=== PATIENT | male | born 1995 | race American Indian/Alaskan Native ===

== ENCOUNTER 2017-05-02 11:50 | Emergency (ER) | payer SELFPAY ==
[2017-05-02] MEDS ORDERED: NACL 0.9% 1000 ML 1,000 ML IV ONE (13:08)
--- NOTE | 2017-05-02 13:16 | Emergency Department Report ---
HPI - General Chief Complaint: Arrhythmia/Palpitations Time Seen by Provider: 05/02/17 12:28 - HPI HPI: This is a 21-year-old male presents to the emergency department with a 2 day history of some tachycardia/palpitations, some tingling around his face and mouth as well as in the hands, and now he has started to develop some abdominal cramping and diarrhea. The patient thought that he was doing mildly but later found out that he was taking crystal meth. He denies any significant history of chronic drug use. He has not taken anything for his symptoms prior to presentation. 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 No recent travel or sick contacts at home. ED Past Medical Hx - Past Medical History Hx Psychiatric Treatment: Yes (bipolar / chronic depression) Additional medical history: heart murmur - Surgical History Past Surgical History?: No - Social History Smoking Status: Current Every Day Smoker Substance Use Type: Alcohol, Marijuana, Methamphetamines - Medications Home Medications: Home Medications Medication Instructions Recorded Confirmed Last Taken Type No Known Home Medications [No 05/02/17 05/02/17 Unknown History Reported Home Medications] ED Review of Systems ROS: Stated complaint: FAST PULSE/TINGLING FACE/FINGERTIPS Other details as noted in HPI Comment: All other systems reviewed and negative Constitutional: denies: chills, fever Eyes: denies: eye pain, eye discharge, vision change ENT: denies: ear pain, throat pain Respiratory: denies: cough, shortness of breath, wheezing Cardiovascular: palpitations (with tachycardia). denies: chest pain Gastrointestinal: abdominal pain, diarrhea Genitourinary: denies: urgency, dysuria Musculoskeletal: denies: back pain, joint swelling, arthralgia Skin: denies: rash, lesions Neurological: denies: headache, weakness, paresthesias Physical Exam - Physical Exam Vital Signs: Vital Signs 05/02/17 05/02/17 12:07 12:55 Temperature 97.4 F L Pulse Rate 97 H Respiratory 24 18 Rate Blood Pressure 147/103 O2 Sat by Pulse 100 100 Oximetry Physical Exam: GENERAL: The patient is well-developed well-nourished. HENT: Normocephalic. Atraumatic. Patient has moist mucous membranes. EYES: Extraocular motions are intact. Pupils equal, round and reactive to light. NECK: Supple. Trachea is midline. CHEST/LUNGS: Clear to auscultation. There is no respiratory distress noted. HEART/CARDIOVASCULAR: Regular. There is no tachycardia. There is no gallop rub or murmur. ABDOMEN: Abdomen is soft, nontender. No guarding or rebound tenderness. Patient has normal bowel sounds. There is no abdominal distention. SKIN: There is no rash. There is no edema. There is no diaphoresis. NEURO: The patient is awake, alert, and oriented. The patient is cooperative. The patient has no focal neurologic deficits. The patient has normal speech. Cranial nerves II through XII grossly intact. MUSCULOSKELETAL: There is no tenderness or deformity. There is no limitation range of motion. There is no evidence of acute injury. ED Course Vital Signs 05/02/17 05/02/17 12:07 12:55 Temperature 97.4 F L Pulse Rate 97 H Respiratory 24 18 Rate Blood Pressure 147/103 O2 Sat by Pulse 100 100 Oximetry ED Medical Decision Making - Lab Data Result diagrams: 05/02/17 13:42 05/02/17 13:42 - EKG Data -: EKG Interpreted by Tx EKG shows normal: sinus rhythm, axis (right axis deviation), intervals, QRS complexes, ST-T waves Rate: normal - EKG Data When compared to previous EKG there are: previous EKG unavailable Interpretation: normal EKG (with right axis deviation) - Radiology Data Radiology results: report reviewed Right upper quadrant abdominal ultrasound shows some possible debris within the gallbladder but otherwise there is no cholecystitis or any other acute process seen. - Medical Decision Making 21-year-old male presents one to 2 days after taking either methamphetamines or hafsa with complaints of some dizziness, nausea and vomiting, and lower abdominal cramping. Vital signs stable. His ED course. EKG is normal without ST elevation WI, arrhythmia or ischemia. Labs are mostly unremarkable except for elevated bilirubin at 2.2. Ultrasound was done that shows some gallbladder debris but no cholelithiasis or cholecystitis or any other acute process. It may be elevated secondary to recent vomiting episodes. He was given IV fluid resuscitation and reevaluated multiple times for multiple hours and says he is feeling greatly improved and currently asymptomatic. Vital signs stable. His ED course. He will avoid any further illicit drug use and follow-up with his primary care physician. Return to the ER with any worsening of symptoms or any acute distress. Critical Care Time: No Critical care attestation.: If time is entered above; I have spent that time in minutes in the direct care of this critically ill patient, excluding procedure time. ED Disposition Clinical Impression: Substance abuse, Dizziness Abdominal pain Qualifiers: Abdominal location: lower abdomen, unspecified Qualified Code(s): R10.30 - Lower abdominal pain, unspecified Disposition: DC- TO HOME OR SELFCARE Is pt being admited?: No Condition: Good Instructions: Abdominal Pain (ED) Additional Instructions: Please follow-up with your primary care physician in the next few days. Return to the emergency Department with any worsening of your symptoms or any acute distress. Referrals: [facility] [Outside] - 3-5 Days PRIMARY CARE, [Primary Care Provider] - 3-5 Days KRYSTAL HERNANDEZ MD [Staff Physician] - 3-5 Days
[2017-05-02 13:59] LABS: Basophils % (Auto) 1.3 % (0.0-1.8); Eosinophils % (Auto) 6.1 % (0.0-4.3); Hemoglobin 17.9 gm/dl (11.8-15.2); Mean Corpuscular HGB Conc 34 % (32-34); Mean Corpuscular Hemoglobin 30 pg (28-32); Mean Corpuscular Volume 88 fl (84-94); Platelet Count 193 K/mm3 (140-440); Red Blood Count 5.99 M/mm3 (3.65-5.03)
[2017-05-02 14:18] LABS: Alanine Aminotransferase 13 units/L (7-56); Albumin 4.6 g/dL (3.9-5); Albumin/Globulin Ratio 1.4 %; Alkaline Phosphatase 72 units/L (35-129); Anion Gap 21 mmol/L; Blood Urea Nitrogen 12 mg/dL (9-20); Calcium 9.6 mg/dL (8.4-10.2); Carbon Dioxide 24 mmol/L (22-30); Chloride 95.9 mmol/L (98-107); Creatine Kinase 184 units/L (55-170); Glucose 76 mg/dL (75-100); Potassium 3.8 mmol/L (3.6-5.0); Sodium 137 mmol/L (137-145); Total Protein 7.9 g/dL (6.3-8.2)
--- NOTE | 2017-05-02 15:43 | Ultrasound Report ---
Sonogram right upper quadrant: History: Abdominal pain, elevated bilirubin. Findings: Aortic diameter 1.8 cm. Liver and normal in size. No intrahepatic or extrahepatic duct dilatation. Common bile duct diameter 4 mm. Gallbladder wall thickness 2 mm. Debris seen within the gallbladder however no calculi is identified. No pericholecystic fluid. Right kidney 9.8 x 4 x 5.5 cm. Cortical thickness 1.5 cm. Normal pancreas. Impression: Debris seen within the gallbladder. No calculi.
[2017-05-02 15:46] LABS: Urine Drugs of Abuse Note Disclamer
[2017-05-02 15:59] LABS: Bilirubin,Urine NEG (Negative); Blood,Urine NEG (Negative); Ketones,Urine 80 mg/dL (Negative); Leukocyte Esterase,Urine NEG (Negative); Mucus,Urine 3+ /HPF; Nitrite,Urine NEG (Negative); WBC,Urine < 1.0 /HPF (0.0-6.0)
[2017-05-02 16:25] VITALS: BP 129/78
== END 2017-05-02 16:24 | disposition home or self-care (01) ==
LOC: ED 11:50
DX: R42 Dizziness and giddiness (principal); R00.2 Palpitations; R10.30 Lower abdominal pain, unspecified; F17.210 Nicotine dependence, cigarettes, uncomplicated; F12.10 Cannabis abuse, uncomplicated; F15.10 Other stimulant abuse, uncomplicated
CPT/HCPCS: 36415; 76705; 80053; 80307; 81001; 82550; 84443; 84484; 85025; 93005; 93010; 99284; J7030